=== PATIENT | female | born 1935 | race Caucasian/White ===

== ENCOUNTER → 2019-04-30 | Emergency (ER) | payer OTHER ==
[~2019-04-30] VITALS: Ht 121.9 cm; Wt 88.5 kg
[~2019-04-30] MED LIST: CEFADROXIL500 MG PO; LEVO-T25 MCG; LIPITOR20 MG PO; PERCOCET 5/3251 TAB PO; TOPROL XL25 MG; XARELTO10 MG PO
== END | disposition home or self-care (01) ==
LOC: ER 08:16 → CPU-OBS 08:18
DX: R07.89 Other chest pain (principal)